=== PATIENT | female | born 1985 | race American Indian/Alaskan Native ===

== ENCOUNTER 2017-03-27 05:23 | Emergency (ER) | payer OTHER ==
[2017-03-27 05:37] VITALS: BP 121/79
--- NOTE | 2017-03-27 07:18 | Emergency Department Report ---
- General Chief Complaint: Sore Throat Stated Complaint: SORE THROAT/COUGH/CONGESTION Time Seen by Provider: 03/27/17 07:01 Source: patient Mode of arrival: Ambulatory Limitations: No Limitations - History of Present Illness Initial Comments: This is a 31-year-old female nontoxic, well nourished in appearance, no acute signs of distress presents to the ED complaining of productive cough and sore throat 2 weeks. Patient denies any fever, chills, chest pain, shortness of breath, wheezing, calf pain, calf tenderness, dyspnea, hemoptysis, headache, nausea, vomiting, numbness or tingling. Patient describes cough is yellow- green mucus production and sore throat as sharp. Patient denies any sick contact. Denies any allergies or past medical history. Patient denies recent travels, long car rides, or recent hospital stays. Patient stated has hx of hysterectomy. MD Complaint: cough, sore throat -: Gradual, week(s) (2) Severity: mild Severity scale (0 -10): 7 Quality: sharp Consistency: constant Improves With: nothing Worsens With: nothing Associated Symptoms: denies other symptoms, sore throat, cough. denies: fever, chills, myalgias, diaphoresis, headache, rhinorrhea, nasal congestion, stiff neck, chest pain, shortness of breath, abdominal pain, nausea, vomiting, diarrhea, dysuria, rash, confusion, right sweats, weight loss, epistaxis, hoarseness, ear pain Treatments Prior to Arrival: none - Related Data Previous Rx's Medication Instructions Recorded Last Taken Type Azithromycin [Zithromax Z-KALINA] 250 mg PO DAILY #6 tablet 03/27/17 Unknown Rx guaiFENesin [Robitussin] 200 mg PO Q6H 7 Days 03/27/17 Unknown Rx Allergies Allergy/AdvReac Type Severity Reaction Status Date / Time No Known Allergies Allergy Unverified 03/27/17 05:37 ED Review of Systems ROS: Stated complaint: SORE THROAT/COUGH/CONGESTION Other details as noted in HPI Constitutional: denies: chills, fever Eyes: denies: eye pain, eye discharge, vision change ENT: throat pain. denies: ear pain Respiratory: cough. denies: shortness of breath, SOB with exertion, SOB at rest , stridor, wheezing Cardiovascular: denies: chest pain, palpitations Endocrine: no symptoms reported Gastrointestinal: denies: abdominal pain, nausea, diarrhea Genitourinary: denies: urgency, dysuria, discharge Musculoskeletal: denies: back pain, joint swelling, arthralgia Skin: denies: rash, lesions Neurological: denies: headache, weakness, paresthesias Psychiatric: denies: anxiety, depression Hematological/Lymphatic: denies: easy bleeding, easy bruising ED Past Medical Hx - Past Medical History Previous Medical History?: No - Surgical History Past Surgical History?: No - Medications Home Medications: Home Medications Medication Instructions Recorded Confirmed Last Taken Type Azithromycin [Zithromax Z-KALINA] 250 mg PO DAILY #6 tablet 03/27/17 Unknown Rx guaiFENesin [Robitussin] 200 mg PO Q6H 7 Days 03/27/17 Unknown Rx ED Physical Exam - General Limitations: No Limitations General appearance: alert, in no apparent distress - Head Head exam: Present: atraumatic, normocephalic, normal inspection - Eye Eye exam: Present: normal appearance, PERRL, EOMI. Absent: scleral icterus, conjunctival injection, nystagmus, periorbital swelling, periorbital tenderness Pupils: Present: normal accommodation - ENT ENT exam: Present: normal exam, normal orophraynx, mucous membranes moist, TM's normal bilaterally, normal external ear exam - Neck Neck exam: Present: normal inspection, full ROM. Absent: tenderness, meningismus, lymphadenopathy, thyromegaly - Respiratory Respiratory exam: Present: normal lung sounds bilaterally. Absent: respiratory distress, wheezes, rales, rhonchi, stridor, chest wall tenderness, accessory muscle use, decreased breath sounds, prolonged expiratory - Cardiovascular Cardiovascular Exam: Present: regular rate, normal rhythm. Absent: systolic murmur, diastolic murmur, rubs, gallop - GI/Abdominal GI/Abdominal exam: Present: soft, normal bowel sounds. Absent: distended, tenderness, guarding, rebound, rigid, diminished bowel sounds - Rectal Rectal exam: Present: deferred - Extremities Exam Extremities exam: Present: normal inspection, full ROM, normal capillary refill. Absent: tenderness, pedal edema, joint swelling, calf tenderness - Back Exam Back exam: Present: normal inspection, full ROM. Absent: tenderness, CVA tenderness (R), CVA tenderness (L), muscle spasm, paraspinal tenderness, vertebral tenderness, rash noted - Neurological Exam Neurological exam: Present: alert, oriented X3, CN II-XII intact, normal gait, reflexes normal - Psychiatric Psychiatric exam: Present: normal affect, normal mood - Skin Skin exam: Present: warm, dry, intact, normal color. Absent: rash ED Course Vital Signs 03/27/17 03/27/17 05:32 07:16 Temperature 99.2 F Pulse Rate 123 H 103 H Respiratory 17 16 Rate Blood Pressure 121/79 Blood Pressure 121/79 [Left] O2 Sat by Pulse 97 96 Oximetry - Reevaluation(s) Reevaluation #1: 03/27/17 07:33 Patient speaks full sentences without signs of distress. ED Medical Decision Making - Medical Decision Making There is a 31-year-old female that presents with upper respiratory infection. Patient is stable. Patient was examined by myself. X-ray of chest has been obtained and dictated a radiologist with right lower lobe pneumonia. Patient notified of x-ray results with no further questions nor by the patient. Patient will be treated with Z-Kalina and Robitussin at discharge. Patient was instructed to follow-up with a primary care doctor in 24 hours or if symptoms worsen such as hemoptysis, shortness of breath, difficulty breathing, chest pain , or any abnormal symptoms return to emergency room as soon as possible. At time time of discharge, the patient does not seem toxic or ill in appearance. No acute signs of distress noted. Well's criteria for DVT/PE:1.5 points Low risk group: 1.3% chance of PE in an ED population. Another study assigned scores 4 as PE Unlikely and had a 3% incidence of PE. Patient agrees to discharge treatment plan of care. No further questions noted by the patient. Critical care attestation.: If time is entered above; I have spent that time in minutes in the direct care of this critically ill patient, excluding procedure time. ED Disposition Clinical Impression: Right lower lobe pneumonia Qualifiers: Pneumonia type: due to unspecified organism Qualified Code(s): J18.1 - Lobar pneumonia, unspecified organism Disposition: TO HOME OR SELFCARE Is pt being admited?: No Does the pt Need Aspirin: No Condition: Stable Instructions: Azithromycin (By mouth), Bacterial Pneumonia (ED) Additional Instructions: follow-up with a primary care doctor in 24 hours or if symptoms worsen such as hemoptysis, shortness of breath, difficulty breathing, chest pain, or any abnormal symptoms return to emergency room as soon as possible. Prescriptions: Azithromycin [Zithromax Z-KALINA] 250 mg PO DAILY #6 tablet guaiFENesin [Robitussin] 200 mg PO Q6H 7 Days Referrals: [facility] [Outside] - 3-5 Days [facility] [Outside] - 3-5 Days DENI KLOB MD [Staff Physician] - 24 Hours PRIMARY CAREMD [Primary Care Provider] - 24 Hours Forms: Work/School Release Form(ED)
--- NOTE | 2017-03-27 08:42 | XRay Report ---
PA and lateral chest: Cough There is an infiltrate in the posterior segment of the right lower lobe. The chest is otherwise clear. Mediastinal contour is unremarkable. Impression: Right lower lobe pneumonia.
== END 2017-03-27 09:08 | disposition home or self-care (01) ==
LOC: ED 05:23
DX: J18.1 Lobar pneumonia, unspecified organism (principal)
CPT/HCPCS: 71020; 87116; 87430; 99283

== ENCOUNTER 2017-09-04 16:08 | Emergency (ER) | payer OTHER ==
[2017-09-04 17:22] VITALS: BP 103/59
--- NOTE | 2017-09-04 19:49 | Emergency Department Report ---
ED Abdominal Pain HPI - General Chief Complaint: Abdominal Pain Stated Complaint: BURNING IN STOMACH Time Seen by Provider: 09/04/17 19:39 Source: patient Mode of arrival: Ambulatory Limitations: No Limitations - History of Present Illness MD Complaint: abdominal pain -: days(s) (4 days) Location: epigastric Radiation: none Migration to: no migration Severity: moderate Severity scale (0 -10): 4 Quality: burning Consistency: constant Improves With: eating Associated Symptoms: denies other symptoms. denies: nausea, vomiting, diarrhea - Related Data Previous Rx's Medication Instructions Recorded Last Taken Type Azithromycin [Zithromax Z-KALINA] 250 mg PO DAILY #6 tablet 03/27/17 Unknown Rx guaiFENesin [Robitussin] 200 mg PO Q6H 7 Days udc 03/27/17 Unknown Rx Allergies Allergy/AdvReac Type Severity Reaction Status Date / Time No Known Allergies Allergy Unverified 09/04/17 17:22 ED Review of Systems ROS: Stated complaint: BURNING IN STOMACH Other details as noted in HPI Comment: All other systems reviewed and negative Respiratory: denies: cough, orthopnea, shortness of breath Gastrointestinal: abdominal pain. denies: nausea, vomiting, diarrhea, constipation, hematemesis ED Past Medical Hx - Past Medical History Previous Medical History?: Yes Additional medical history: pneumonia 05/09 - Surgical History Past Surgical History?: Yes Hx Appendectomy: Yes - Social History Smoking Status: Never Smoker Substance Use Type: Alcohol - Medications Home Medications: Home Medications Medication Instructions Recorded Confirmed Last Taken Type Azithromycin [Zithromax Z-KALINA] 250 mg PO DAILY #6 tablet 03/27/17 Unknown Rx guaiFENesin [Robitussin] 200 mg PO Q6H 7 Days udc 03/27/17 Unknown Rx ED Physical Exam - General Limitations: No Limitations General appearance: alert, in no apparent distress - Head Head exam: Present: atraumatic, normocephalic, normal inspection - Eye Eye exam: Present: normal appearance - ENT ENT exam: Present: normal exam, normal orophraynx, mucous membranes moist - Neck Neck exam: Present: normal inspection, full ROM. Absent: tenderness, meningismus - Respiratory Respiratory exam: Present: normal lung sounds bilaterally. Absent: respiratory distress, wheezes, rales, rhonchi, chest wall tenderness, accessory muscle use, decreased breath sounds, prolonged expiratory - Cardiovascular Cardiovascular Exam: Present: regular rate, normal rhythm, normal heart sounds - GI/Abdominal GI/Abdominal exam: Present: soft, tenderness (epigastric), normal bowel sounds. Absent: guarding, rebound, rigid, organomegaly, mass, bruit, pulsatile mass, hernia - Extremities Exam Extremities exam: Present: normal inspection, full ROM, normal capillary refill - Neurological Exam Neurological exam: Present: alert, oriented X3, CN II-XII intact - Skin Skin exam: Present: warm, intact, normal color. Absent: cyanosis ED Course Vital Signs 09/04/17 17:17 Temperature 98.3 F Pulse Rate 90 Respiratory 16 Rate Blood Pressure 103/59 O2 Sat by Pulse 98 Oximetry ED Medical Decision Making - Medical Decision Making Patient's symptoms is very typical for possible peptic ulcer versus gastritis. We'll treat with Nexium and sucralfate. Advised patient to avoid NSAIDs and to follow-up with her primary care physician. Patient also advised to return to the ER if her symptoms are not improving. Critical care attestation.: If time is entered above; I have spent that time in minutes in the direct care of this critically ill patient, excluding procedure time. ED Disposition Clinical Impression: Abdominal pain, Gastritis Disposition: DC-01 TO HOME OR SELFCARE Is pt being admited?: No Condition: Stable Instructions: Abdominal Pain (ED), Peptic Ulcer (ED), Gastritis (ED)
== END 2017-09-04 20:00 | disposition home or self-care (01) ==
LOC: ED 16:08
DX: K29.70 Gastritis, unspecified, without bleeding (principal); R10.13 Epigastric pain; J18.9 Pneumonia, unspecified organism
CPT/HCPCS: 99282

== ENCOUNTER 2018-09-03 22:44 | Emergency (ER) | payer OTHER ==
[2018-09-03] MEDS ORDERED: IBUPROFEN PO ONE (23:42)
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
[2018-09-04 00:54] VITALS: BP 113/71
== END 2018-09-04 00:54 | disposition home or self-care (01) ==
LOC: ED 22:44
DX: S39.012A Strain of muscle, fascia and tendon of lower back, initial encounter (principal); S46.911A Strain of unspecified muscle, fascia and tendon at shoulder and upper arm level, right arm, initial encounter; Z90.710 Acquired absence of both cervix and uterus; V89.2XXA Person injured in unspecified motor-vehicle accident, traffic, initial encounter; Y93.89 Activity, other specified; Y92.410 Unspecified street and highway as the place of occurrence of the external cause; Y99.8 Other external cause status
CPT/HCPCS: 72100; 99283

== ENCOUNTER 2019-04-24 15:24 | Outpatient (CLI) | payer OTHER ==
--- NOTE | 2019-04-24 16:25 | XRay Report ---
Thoracic spine, 3 views INDICATION: M54.5) LOW BACK PAIN. COMPARISON: None. IMPRESSION: Normal alignment. No significant discogenic DJD or facet arthropathy. No acute osseous or soft tissue abnormality. Lumbosacral spine, 5 views INDICATION: M54.5) LOW BACK PAIN. COMPARISON: None. IMPRESSION: Normal alignment. No significant discogenic DJD or facet arthropathy. Oblique images de monstrate wide patency of the neural foramen bilaterally. No acute osseous or soft tissue abnormality . Signer Name: Otoniel Whiting Jr, MD Signed: 04/24/2019 4:20 PM Workstation Name: [id number]
== END 2019-04-24 15:25 | disposition home or self-care (01) ==
LOC: XRAY 15:24
PROVIDERS: ATTEND Internal Medicine Gastroenterology
DX: M54.5 Low back pain (principal); Z90.89 Acquired absence of other organs; Z90.710 Acquired absence of both cervix and uterus
CPT/HCPCS: 72072; 72110